=== PATIENT | male | born 1960 | race Caucasian/White ===

== ENCOUNTER → 2018-10-03 | Outpatient (CLI) | payer BC ==
--- NOTE | 2018-10-03 17:30 | KCIC ---
SHOULDER 2+V RIGHT, HUMERUS RIGHT History: Right shoulder and elbow pain after a fall on ice 4 weeks ago. 3 view right shoulder No acute fracture. No aggressive bone destruction. Glenohumeral joint and acromioclavicular joint appear intact. No significant soft tissue abnormality. IMPRESSION: No acute fracture or dislocation Two-view right humerus No acute fracture. No periosteal reaction. Soft tissues appear unremarkable. Visualization of the elbow, there is some osseous density adjacent to the lateral epicondyle, could be dystrophic or due to old injury. IMPRESSION: No acute fracture. Electronically signed by: Jitendra Pickering MD (10/03/2018 5:27 PM) [id number]
== END | disposition home or self-care (01) ==
LOC: KCIC 15:28
PROVIDERS: ATTEND Family Medicine
DX: M25.511 Pain in right shoulder (principal); W00.0XXD Fall on same level due to ice and snow, subsequent encounter
CPT/HCPCS: 73030; 73060